=== PATIENT | male | born 1965 | race American Indian/Alaskan Native ===

== ENCOUNTER 2017-08-13 12:32 | Emergency (ER) | payer MEDICARE ==
--- NOTE | 2017-08-13 12:46 | Emergency Department Report ---
ED Psych HPI - General Stated Complaint: MENTAL HEALTH EVAL Time Seen by Provider: 08/13/17 12:41 Source: family Mode of arrival: Ambulatory - History of Present Illness Initial Comments: Patient is 52 years old male with history of schizophrenia lived in a [facility]. Patient was brought to the ER after he became very aggressive and disruptive at the [facility]. Police have to be called several times for his behavior. Patient is very paranoid and is stating that white people are after him. Patient is very aggressive in the ER. Patient is in acute psychosis MD Complaint: altered mental status ED Review of Systems ROS: Stated complaint: MENTAL HEALTH EVAL Other details as noted in HPI Comment: All other systems reviewed and negative Constitutional: denies: chills, fever Respiratory: denies: cough, orthopnea, shortness of breath, SOB with exertion Cardiovascular: denies: chest pain, palpitations, dyspnea on exertion, orthopnea Gastrointestinal: denies: abdominal pain, nausea, vomiting, diarrhea, constipation, hematemesis, hematochezia Neurological: denies: headache, weakness, numbness, paresthesias ED Physical Exam - General General appearance: alert, in no apparent distress, anxious, other (agitated) - Head Head exam: Present: atraumatic, normocephalic, normal inspection - Eye Eye exam: Present: normal appearance, PERRL - ENT ENT exam: Present: normal exam, normal orophraynx, mucous membranes moist, TM's normal bilaterally - Neck Neck exam: Present: normal inspection, full ROM. Absent: tenderness, meningismus, lymphadenopathy - Respiratory Respiratory exam: Present: normal lung sounds bilaterally. Absent: respiratory distress, wheezes, rales, rhonchi, stridor, chest wall tenderness, accessory muscle use, decreased breath sounds, prolonged expiratory - Cardiovascular Cardiovascular Exam: Present: regular rate, normal rhythm, normal heart sounds - GI/Abdominal GI/Abdominal exam: Present: soft, normal bowel sounds. Absent: distended, tenderness, guarding, rebound, rigid, organomegaly, mass, bruit, pulsatile mass , hernia - Extremities Exam Extremities exam: Present: normal inspection, full ROM, normal capillary refill - Back Exam Back exam: Present: normal inspection, full ROM. Absent: tenderness, CVA tenderness (R), CVA tenderness (L), muscle spasm, paraspinal tenderness, vertebral tenderness - Neurological Exam Neurological exam: Present: alert, oriented X3, CN II-XII intact, normal gait - Psychiatric Psychiatric exam: Present: agitated, anxious, manic. Absent: homicidal ideation , suicidal ideation - Skin Skin exam: Present: warm, intact, normal color Critical care attestation.: If time is entered above; I have spent that time in minutes in the direct care of this critically ill patient, excluding procedure time. ED Disposition Clinical Impression: Acute psychosis Disposition: [id number]/TX-[id number] PSY HOSP/PSY UNIT Is pt being admited?: No Condition: Stable
[2017-08-13 13:16] LABS: Hematocrit 44.6 % (35.5-45.6); Hemoglobin 15.3 gm/dl (11.8-15.2); Mean Corpuscular HGB Conc 34 % (32-34); Mean Corpuscular Hemoglobin 31 pg (28-32); Mean Corpuscular Volume 90 fl (84-94); Platelet Count 122 K/mm3 (140-440); Red Blood Count 4.97 M/mm3 (3.65-5.03); Red Cell Distribution Width 14.3 % (13.2-15.2)
[2017-08-13 13:24] LABS: Bilirubin,Urine NEG (Negative); Blood,Urine NEG (Negative); Color,Urine Yellow (Yellow); Protein,Urine <15 mg/dL mg/dL (Negative); Urobilinogen,Urine < 2.0 mg/dL (<2.0)
[2017-08-13 13:32] LABS: Alanine Aminotransferase 24 units/L (7-56); Albumin 3.9 g/dL (3.9-5); BUN/Creatinine Ratio 12; Blood Urea Nitrogen 7 mg/dL (9-20); Hemolysis Index 3
[2017-08-13 13:34] LABS: Amphetamine Screen,Urine PRESUMPTIVE NEGATIVE; Benzodiazepines Screen,Urine PRESUMPTIVE NEGATIVE; Cannabinoid Screen,Urine PRESUMPTIVE NEGATIVE; Cocaine Screen,Urine PRESUMPTIVE NEGATIVE; Methadone Screen,Urine PRESUMPTIVE NEGATIVE; Opiate Screen,Urine PRESUMPTIVE NEGATIVE
[2017-08-13 14:01] LABS: Basophils % (Manual) 0 % (0.0-1.8); Eosinophils % (Manual) 0 % (0.0-4.3); Platelet Estimate Consistent w Auto; Total Cells Counted 100
--- NOTE | 2017-08-14 14:59 | Consultation ---
History of Present Illness - Reason for Consult Consult date: 08/14/17 Reason for consult: Initial Psychiatric Evaluation - Chief Complaint Chief complaint: " I don't know." - History of Present Psychiatric Illness Patient is 52 years old male with history of schizophrenia lived in a detention. Patient was brought to the ER after he became very aggressive and disruptive at the detention. Police have to be called several times for his behavior. Patient is very paranoid and is stating that white people are after him. Patient is very aggressive in the ER. Today, patient reports "I was in an argument with my step-dad and he brought me to the hospital. I don't know why I'm here." He denies auditory/visual hallucinations, delusions, and psychosis. He reports good energy, appetite, and sleep. He endorses being easily irritated and agitated. Patient thought content is impoverished. Current Medications: Per patient he takes Risperdal and Depakote. Past psychiatric history: Schizophrenia (); multiple inpatient hospitalizations to [facility]; no previous suicide attempts; outpatient psychiatrist name unknown. Past psychiatric medication trials: Patient unable to recall. History of trauma/abuse: Patient denies history of sexual, physical, or mental abuse. Drug/ Alcohol Abuse history: Patient denies history of substance abuse. Social history: 12th grade; per patient he lives with mother and stepfather; Amount of income unknown; no children; single. Family history: Patient denies family hx of psychiatric/substance abuse. Medications and Allergies Allergies Allergy/AdvReac Type Severity Reaction Status Date / Time No Known Allergies Allergy Verified 08/13/17 13:01 Home Medications Medication Instructions Recorded Confirmed Last Taken Type Unobtainable 08/13/17 08/13/17 Unknown History Mental Status Exam - Vital signs Last Vital Signs Temp 98.2 F 08/13/17 21:23 Pulse 81 08/13/17 21:23 Resp 18 08/13/17 21:23 BP 115/91 08/13/17 21:23 Pulse Ox 99 08/13/17 21:23 - Exam Narrative exam: Mental Status Exam: Gen. appearance: Hospital gown Behavior: Cooperative, defensive Sensorium: Distracted Eye contact: Intermittent Psychomotor and musculoskeletal activity: Sitting on the side of the bed Mood: Anxious, labile, and easily irritable. Affect: Constricted Speech/language: Rapid Thought processes: Tangential, circumstantial Thought content: Impoverished, paranoid Perception: WNL- patient denies A/VH and delusions Suicidal ideation/plan: Patient denies Homicidal ideation/plan: Patient denies Judgment: Poor Insight: Poor Results Result Diagrams: 08/13/17 12:59 08/13/17 12:59 All other labs normal. Assessment and Plan Assessment and plan: Impression: Patient is 52 years old male with history of schizophrenia lived in a detention. Patient was brought to the ER after he became very aggressive and disruptive at the detention. PPHx of Schizophrenia. Patient presents anxious, labile, and easily irritable. Patient denies psychosis, A/VH, and delusions. Provider believes that patient is paranoid and internally preoccupied. Appears to be minimizing symptoms. DDx: Schizophrenia r/o Mood Disorder unspecified Recommendations/Plan: 1. Continue 1013 and reassess in 24 hours. 2. Start Rsiperdal 0.5 mg po BID for psychosis. Start Depakote 250mg po BID for mood. 3. Educated patient on the metabolic side effects of medications. 4. Will monitor mood, psychosis, compliance, and side effects. 5. Collect collateral to assist with treatment plan.
[2017-08-14 18:28] VITALS: BP 138/88
== END 2017-08-14 16:26 ==
LOC: ED 12:32
DX: F20.9 Schizophrenia, unspecified (principal)
CPT/HCPCS: 36415; 80053; 80307; 81001; 85007; 85025; 99285; G0480; 80320

== ENCOUNTER 2020-02-25 20:08 | Emergency (ER) | payer MEDICARE ==
[2020-02-25 20:26] VITALS: BP 116/71
--- NOTE | 2020-02-25 20:28 | Emergency Department Report ---
Blank Doc - Documentation Documentation: This is a 54-year-old male that presents with being homeless and stating he is psych patient. Patient is a poor historian. This initial assessment/diagnostic orders/clinical plan/treatment(s) is/are subject to change based on patient's health status, clinical progression and re- assessment by fellow clinical providers in the ED. Further treatment and workup at subsequent clinical providers discretion. Patient/guardians urged not to elope from the ED as their condition may be serious if not clinically assessed and managed. Initial orders include: 1- Patient sent to MAIN ED for further evaluation and treatment 2- family and marriage counsellor was notified to have patient be brought back [facility]. 3- RN was notified to keep patient as close range and observation until room available
[2020-02-25 20:48] LABS: Basophils % (Auto) 0.7 % (0.0-1.8); Eosinophils % (Auto) 0.4 % (0.0-4.3); Hematocrit 38.4 % (35.5-45.6); Hemoglobin 12.9 gm/dl (11.8-15.2); Lymphocytes # (Auto) 1.4 K/mm3 (1.2-5.4); Lymphocytes % (Auto) 37.6 % (13.4-35.0); Mean Corpuscular HGB Conc 34 % (32-34); Mean Corpuscular Volume 94 fl (84-94); Monocytes # (Auto) 0.4 K/mm3 (0.0-0.8); Monocytes % (Auto) 10.6 % (0.0-7.3); Platelet Count 161 K/mm3 (140-440); Red Blood Count 4.08 M/mm3 (3.65-5.03); Red Cell Distribution Width 14.7 % (13.2-15.2)
[2020-02-25 21:07] LABS: Blood Urea Nitrogen 12 mg/dL (9-20); Calcium 8.8 mg/dL (8.4-10.2); Hemolysis Index 8
[2020-02-25 21:25] LABS: BUN/Creatinine Ratio 17
== END 2020-02-26 00:05 | disposition left against medical advice (07) ==
LOC: ED 20:08
DX: M79.672 Pain in left foot (principal); M79.671 Pain in right foot; F20.9 Schizophrenia, unspecified; Z53.21 Procedure and treatment not carried out due to patient leaving prior to being seen by health care provider
CPT/HCPCS: 36415; 80048; 80320; 85025; G0480